=== PATIENT | female | born 1945 | race Caucasian/White ===

== ENCOUNTER 2016-11-04 05:00 | Emergency (ER) | payer MEDICARE, OTHER ==
[2016-11-04 05:51] LABS: URINE MUCUS NONE SEEN (Up to 25%); URINE RBC NONE SEEN (0-5/hpf)
[2016-11-04 06:08] LABS: URINE APPEARANCE CLEAR; URINE COLOR YELLOW
[2016-11-04 06:09] LABS: URINE BILIRUBIN NEGATIVE (NEGATIVE); URINE BLOOD 10 Ery/uL (1+) (NEGATIVE); URINE GLUCOSE NORMAL (NEGATIVE); URINE KETONE NEGATIVE (NEGATIVE); URINE LEUKOCYTE ESTERASE TRACE (NEGATIVE); URINE NITRITE NEGATIVE (NEGATIVE); URINE PROTEIN NEGATIVE (NEG - TRACE); URINE SPECIFIC GRAVITY 1.025 (0.001-1.035); URINE UROBILINOGEN 0.2mg/dL (Normal) (NEG-1mg/dL)
[2016-11-04 06:10] LABS: URINE BACTERIA <10 ORGANISMS/hpf (<10/hpf); URINE HYALINE CAST NONE SEEN (0-5/lpf); URINE SQUAMOUS EPITHELIAL CELL 0-5/hpf (<= 15/hpf); URINE TRANSITIONAL EPI CELL NONE SEEN (<=5/hpf); URINE WBC 0-4/hpf (0-4/hpf)
--- NOTE | 2016-11-04 06:18 | ER PHYSICIAN DOCUMENTATION ---
Physician Documentation [facility] Name:Terrie Zhong Age:71 yrs Sex:Female :1945 Arrival Date:11/04/2016 Time:05:00 Bed4 Private MD:Jose Herrera ED, John Disposition: 11/04/16 06:08 Discharged to Home/Self Care. Impression: Influenza, Postoperative Pain- Acute. - Condition is Good. - Discharge Instructions: INFLUENZA (Adult). - Medical Reconciliation form form. - Follow up: Private Physician; When: Upon discharge from the Emergency Department; Reason: Continuance of care. - Problem is new. - Symptoms have improved. HPI: 11/04 05:00 This 71 yrs old Female presents to ER via Walk In with complaints of Neck and jm Upper Back Pain. 05:00 The patient or guardian complains of pain, that is acute. The symptoms are located on jm the base of the skull. Onset: The symptom(s)/episode began/occurred just prior to arrival. Associated signs and symptoms: Pertinent positives: chills, fever. Pt with urinary incontinence after a spinal ablastin in her neck to relieve neck pain. Pt states that he was told to come to the ER if this were to occur. That happened yesterday and she's had no incontinent since. Now she is here b.c of cough, chills, and body aches. The pain in her neck is there but much better after tylenol. . Historical: - Allergies: Codeine; Percocet; Percodan; niacin; - Home Meds: 1. amlodipine oral 2. hctz 3. Aspirin Oral - PMHx: Hypertension; - PSHx: Appendectomy; Hip surgery; Knee surgery; - Tetanus: < 10 years. - Ebola Screening: : Patient negative for fever greater than or equal to 101.5 degrees Fahrenheit, and additional compatible Ebola Virus Disease symptoms. Patient denies exposure to infectious person. Patient denies travel to an Ebola-affected area in the 21 days before illness onset. No symptoms or risks identified at this time. . - Immunization history: Flu Vaccine None. - Social history: Smoking status: Patient states was never smoker of tobacco. Patient/guardian denies using alcohol. ROS: 05:30 Constitutional: Positive for body aches, chills, fatigue, malaise. 05:30 Neck: Positive for pain with movement, stiffness, tenderness. 05:30 Respiratory: Positive for cough. 05:30 Abdomen/GI: Negative for abdominal pain, nausea, vomiting. 05:30 : Positive for bladder incontinence. 05:30 Neuro: Positive for headache, Negative for numbness, tingling. Exam: 05:30 Constitutional: The patient appears alert, awake. jm 05:30 Constitutional: The patient appears obviously ill. 05:30 Eyes: Periorbital structures: appear normal, Extraocular movements: no acute changes. 05:30 ENT: Posterior pharynx: is normal. 05:30 Neck: External neck: is normal, C-spine: appears grossly normal, ROM/movement: limited range of motion, that is moderate, in any direction. 05:30 Cardiovascular: Rate: normal, Rhythm: regular. 05:30 Respiratory: Respirations: normal, Breath sounds: are normal, active cough noted- dry. 05:30 Neuro: Mentation: is normal, Motor: strength is 5/5 in all extremities, Sensation: is normal, Gait: is steady. 05:30 Psych: Behavior/mood is pleasant, cooperative, Affect is calm. Vital Signs: 05:18 BP 128 / 73; Pulse 92; Resp 16; Temp 98.6; Pulse Ox 93% on R/A; Weight 66.22 kg; Height lb 5 ft. 2 in. (157.48 cm); Pain 3/10; 06:16 BP 130 / 70; Pulse 90; Resp 17; Pulse Ox 94% ; lb 05:18 Body Mass Index 26.70 (66.22 kg, 157.48 cm) lb MDM: 05:18 Patient medically screened. 05:30 Differential diagnosis: post op complication and viral syndrome. Data reviewed: vital jm signs, nurses notes, lab test result(s), and as a result, I will discharge patient. 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 ED course: Pt is influenza A positive. Pt seems MUCH more concerned about this and less about the bladder incontinence which she states was a one time thing that happened yesterday. Since we know why she feels so terrible (flu), she feels comfortable going home and following up w her pain doctor about the isolated incontinence issue. Pt states she will RTED for any other new neuro sx. DC home w tamiflu. . 11/04 06:11 Order name: INFLUENZA A/B; Complete Time: 07:47 EDMS 11/04 06:11 Order name: UA W/ MICRO -CULTURE IF IND; Complete Time: 07:47 EDMS 11/04 05:29 Order name: Urine Dip; Complete Time: 05:49 Dispensed Medications: No medications were administered Point of Care Testing: Urine Dip: 05:50 pH: 7.0; ; Specific [place]: 1.025; Ketones: Negative; Glucose: Negative; Protein: lb Negative; Leukocytes: Trace; Nitrite: Negative ; Blood: Non Hemolyzed Trace; Bilirubin: Negative ; Urobilinogen: Normal Signatures: Kiel Parra MD MD jm Bollock, Lynda lb
--- NOTE | 2016-11-04 06:18 | ER NURSING DOCUMENTATION ---
Nurse's Notes [facility] Name:Terrie Zhogn Age:71 yrs Sex:Female :1945 Arrival Date:11/04/2016 Time:05:00 Bed4 Private MD:Jose Herrera Diagnosis:Influenza;Postoperative Pain- Acute Presentation: 11/04 05:13 Presenting complaint: Patient states: spinal ablation 2 days ago, states had lb incontinence of urine yesterday and going to br frequently. Transition of care: Home. Notified ED Physician of Fidel Martinez notified. 05:13 Acuity: KODY 3 lb 05:13 Method Of Arrival: Walk In lb Triage Assessment: 05:17 General: Appears in no apparent distress, Behavior is cooperative, pleasant. Pain: lb Complains of pain in right jaw Pain does not radiate. Pain currently is 3 out of 10 on a pain scale. 05:17 Neuro: Level of Consciousness is awake, Oriented to person, place, time, [place] are lb equal bilaterally. Historical: - Allergies: Codeine; Percocet; Percodan; niacin; - Home Meds: 1. amlodipine oral 2. hctz 3. Aspirin Oral - PMHx: Hypertension; - PSHx: Appendectomy; Hip surgery; Knee surgery; - Tetanus: < 10 years. - Ebola Screening: : Patient negative for fever greater than or equal to 101.5 degrees Fahrenheit, and additional compatible Ebola Virus Disease symptoms. Patient denies exposure to infectious person. Patient denies travel to an Ebola-affected area in the 21 days before illness onset. No symptoms or risks identified at this time. . - Immunization history: Flu Vaccine None. - Social history: Smoking status: Patient states was never smoker of tobacco. Patient/guardian denies using alcohol. Screenin:18 Infectious Disease Risk None. Abuse screen: Denies threats or abuse. Denies injuries lb from another. Nutritional screening: No deficits noted. Assessment: 05:18 See Triage Assessment done by same RN. Neuro: No deficits noted. lb Vital Signs: 05:18 BP 128 / 73; Pulse 92; Resp 16; Temp 98.6; Pulse Ox 93% on R/A; Weight 66.22 kg; Height lb 5 ft. 2 in. (157.48 cm); Pain 3/10; 06:16 BP 130 / 70; Pulse 90; Resp 17; Pulse Ox 94% ; lb 05:18 Body Mass Index 26.70 (66.22 kg, 157.48 cm) lb ED Course: 05:02 Patient arrived in ED. ma1 05:03 Jose Herrera is Private Physician. ma1 05:13 Jenni Garcia is Primary Nurse. lb 05:15 Triage completed. lb 05:18 Kiel Parra MD is Attending Physician. leigha 05:18 Valuables Remains with patient Bed in low position. lb Administered Medications: No medications were administered Point of Care Testing: Urine Dip: 05:50 pH: 7.0; ; Specific [place]: 1.025; Ketones: Negative; Glucose: Negative; Protein: lb Negative; Leukocytes: Trace; Nitrite: Negative ; Blood: Non Hemolyzed Trace; Bilirubin: Negative ; Urobilinogen: Normal Outcome: 06:08 Discharge ordered by . jm 06:16 Discharged to home ambulatory. lb 06:16 Condition: stable 06:16 Discharge Assessment: Patient awake, alert and oriented x 3. No cognitive and/or functional deficits noted. Patient verbalized understanding of disposition instructions. 06:16 Instructed on discharge instructions, follow up and referral plans. 06:17 Patient left the ED. lb Signatures: Kiel Parra MD MD jm Bollock, Lynda Hedy [facility]
== END 2016-11-04 06:18 | disposition home or self-care (01) ==
LOC: ER 05:00
DX: J11.1 Influenza due to unidentified influenza virus with other respiratory manifestations (principal); G89.18 Other acute postprocedural pain; M54.2 Cervicalgia; R51 Headache; Z98.890 Other specified postprocedural states; N39.498 Other specified urinary incontinence; I10 Essential (primary) hypertension; Z79.82 Long term (current) use of aspirin; Z79.899 Other long term (current) drug therapy
CPT/HCPCS: 81001; 87086; 87449; 99282; 99283